=== PATIENT | male | born 1960 | race Caucasian/White ===

== ENCOUNTER 2023-09-06 07:30 | Observation (INO) ==
[2023-09-06] MEDS: NOZIN NASAL SANITIZER TP ONE (10:43)
[2023-09-06] MEDS: NS 100 ML IV 100 ML ONE (10:44)
[2023-09-06] MEDS: NS 1,000 ML IV 1,000 ML ONE (10:45)
[2023-09-06 11:55] VITALS: BMI 29.2
[2023-09-06] MEDS: DUONEB 0.5 MG/3 MG (3 mL) NEB ONE (12:01)
[2023-09-06] MEDS: VERSED ONE (13:00)
[2023-09-06] MEDS: ZOFRAN INJ 4 MG VIAL ONE (13:00)
[2023-09-06] MEDS: PEPCID 20 MG VIAL ONE (13:00)
[2023-09-06] MEDS: DIPRIVAN VIAL 20 ML ONE (13:00)
[2023-09-06] MEDS: ROBINUL ONE (13:00)
[2023-09-06] MEDS: BETADINE SOLN ONE (13:00)
[2023-09-06] MEDS: ANCEF VIAL 1 GRAM ONE (13:05)
[2023-09-06] MEDS ORDERED: NS IRRIGATION* 500 ML IR ONE (14:50)
[2023-09-06] MEDS: MARCAINE 0.25% INJ ONE (15:38)
[2023-09-06] MEDS ORDERED: ZOFRAN INJ 4 MG VIAL IVP PRN (16:11)
[2023-09-06] MEDS ORDERED: TYLENOL 325 MG TAB PO PRN (16:11)
[2023-09-06] MEDS: DILAUDID INJ IVP PRN (16:48)
[2023-09-06] MEDS: NORCO 5/325 MG TAB PO PRN (19:17)
[2023-09-06] MEDS: SNACK - Diabetic Appropriate PO SCH (21:13)
[2023-09-06] MEDS: COLACE CAP 100 MG PO SCH (21:13)
[2023-09-06] MEDS: NOZIN NASAL SANITIZER TP SCH (21:14)
[2023-09-06] MEDS: ANCEF VIAL 1 GRAM 2 G in NS 100 ML IV 100 ML IV SCH (21:15)
[2023-09-06] MEDS: NovoLIN R (or HumuLIN R) SUBCUT PRN (21:20)
[2023-09-06] MEDS: NS 500 ML IV 500 ML IV ONE (21:20)
[2023-09-06] MEDS ORDERED: ANCEF VIAL 1 GRAM IVP SCH (22:00)
[2023-09-07 05:59] LABS: BLOOD UREA NITROGEN 28 mg/dL (7-18); CALCIUM 8.6 mg/dL (8.5-10.1); CARBON DIOXIDE 30.2 mmol/L (21-32); CHLORIDE 98 mmol/L (98-107); COR NA(FOR HYPERGLY) 134 mmol/L (136-145); CREATININE 1.22 mg/dL (0.70-1.30); GLUCOSE 118 mg/dL (65-99); POTASSIUM 5.1 mmol/L (3.5-5.1); SODIUM 134 mmol/L (136-145); eGFR NON BLACK RACES > 60 (>60)
[2023-09-07 08:12] LABS: BASOPHILS # (AUTO) 0.1 X10^3/uL (0.0-0.1); BASOPHILS % (AUTO) 0.6 % (0.2-1.0); EOSINOPHILS # (AUTO) 0.1 x10^3/uL (0.0-0.2); EOSINOPHILS % (AUTO) 0.5 % (0.9-2.9); HEMATOCRIT 33.9 % (42.0-54.0); HEMOGLOBIN 11.2 g/dL (13.5-18.0); LYMPHOCYTES # (AUTO) 1.8 X10^3/uL (1.3-2.9); LYMPHOCYTES % (AUTO) 15.7 % (21.0-51.0); MEAN CORPUSCULAR HEMOGLOBIN 31.2 pg (27.0-34.0); MEAN CORPUSCULAR HGB CONC 33.1 g/dL (33.0-35.0); MEAN CORPUSCULAR VOLUME 94.4 fL (80.0-100.0); MEAN PLATELET VOLUME 7.5 fL (7.4-11.0); MONOCYTES # (AUTO) 1.2 x10^3/uL (0.3-0.8); MONOCYTES % (AUTO) 10.5 % (0.0-13.0); NEUTROPHILS # (AUTO) 8.3 x10^3/uL (2.2-4.8); NEUTROPHILS % (AUTO) 72.7 % (42.0-75.0); PLATELET COUNT 265 X10^3/uL (150.0-450.0); RED BLOOD COUNT 3.59 X10^6/uL (4.7-6.0); RED CELL DISTRIBUTION WIDTH 13.5 % (11.6-16.5); WHITE BLOOD COUNT 11.5 X10^3/uL (3.6-10.0)
--- NOTE | 2023-09-07 08:15 | NOTE.SOAP ---
Soap Note Note for Day of Date of Exam: 09/07/23 Subjective Data Subjective Data: POD1 Hindfoot fusion with removal of external fixator. Patient was in pain throughout the night in his foot and only slept a couple of hours. said patient left foot hanging off the bed in the midding of the night and dressings were draining quite a bit. He denies any consitutional symptoms at this time although he has not gone to the bathroom yet today Objective Data Objective Data: Significant sanguinous strikethrough the dressings. Incisions appear intake with no sign of hematoma, active bleeding or dehiscence. Pin sites are clean. Neurovascular status intact. Foot is in a plantigrade position. 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 Discussed the surgery and post op plan in great detail. Dressings were changed completely today. He is to be NWB to the RLE in a splint with a knee scooter or crutches. PT gait train and eval ap preciated. DC IV pain meds and transition to only oral. Patient ok for discharge but recommend working with physical therapy prior to discharge
[2023-09-07 08:36] LABS: BILIRUBIN,DIRECT 0.1 mg/dL (0-0.2); TOTAL PROTEIN 7.1 g/dL (6.4-8.2)
[2023-09-07] MEDS: LOVENOX INJ 40 MG SYR SC SCH (08:38)
[2023-09-07] MEDS: NS 1,000 ML IV 1,000 ML IV ONE ×2 (11:13→14:54)
[2023-09-07 12:24] VITALS: RESP 18
[2023-09-07 13:17] VITALS: PULSE 70; TEMP 98.4; O2SAT 94
[2023-09-07 17:32] VITALS: BP 101/54
== END 2023-09-07 16:45 | disposition home or self-care (01) ==
LOC: MED/SURG
PROVIDERS: ADMIT Obstetrics & Gynecology Obstetrics; ATTEND Obstetrics & Gynecology Obstetrics
DX: S93.314A Dislocation of tarsal joint of right foot, initial encounter; M14.671 Charcot's joint, right ankle and foot; T84.84XA Pain due to internal orthopedic prosthetic devices, implants and grafts, initial encounter; M21.6X1 Other acquired deformities of right foot; R26.89 Other abnormalities of gait and mobility

== ENCOUNTER 2023-10-29 13:10 | Inpatient (IN) ==
[2023-10-29 17:07] LABS: BASOPHILS # (AUTO) 0.2 X10^3/uL (0.0-0.1); EOSINOPHILS # (AUTO) 0.1 x10^3/uL (0.0-0.2); EOSINOPHILS % (AUTO) 1.3 % (0.9-2.9); HEMATOCRIT 33.5 % (42.0-54.0); HEMOGLOBIN 11.6 g/dL (13.5-18.0); LYMPHOCYTES # (AUTO) 2.2 X10^3/uL (1.3-2.9); LYMPHOCYTES % (AUTO) 24.8 % (21.0-51.0); MEAN CORPUSCULAR HEMOGLOBIN 32.1 pg (27.0-34.0); MEAN CORPUSCULAR HGB CONC 34.7 g/dL (33.0-35.0); MEAN CORPUSCULAR VOLUME 92.6 fL (80.0-100.0); MEAN PLATELET VOLUME 8.5 fL (7.4-11.0); MONOCYTES # (AUTO) 0.7 x10^3/uL (0.3-0.8); MONOCYTES % (AUTO) 7.4 % (0.0-13.0); NEUTROPHILS # (AUTO) 5.7 x10^3/uL (2.2-4.8); NEUTROPHILS % (AUTO) 64.5 % (42.0-75.0); PLATELET COUNT 246 X10^3/uL (150.0-450.0); RED BLOOD COUNT 3.62 X10^6/uL (4.7-6.0); WHITE BLOOD COUNT 8.9 X10^3/uL (3.6-10.0)
[2023-10-29 17:11] VITALS: BMI 31.5
--- NOTE | 2023-10-29 17:26 | EKG ---
Test Reason : RIGHT TIBIA FRACTURE Blood Pressure : */* mmHG Vent. Rate : 67 BPM Atrial Rate : 67 BPM P-R Int : 234 ms QRS Dur : 140 ms QT Int : 426 ms P-R-T Axes : 11 -57 125 degrees QTc Int : 450 ms Sinus rhythm with 1st degree AV block Left axis deviation Left bundle branch block Abnormal ECG When compared with ECG of 02-AUG-2023 13:04, IN interval has increased Left bundle branch block has replaced Nonspecific intraventricular conduction delay Confirmed by Ranjit Bernabe MD ([id number]) on 10/30/2023 7:49:32 AM Referred By: Confirmed By: Ranjit Bernabe MD
[2023-10-29] MEDS: D5 1/2 NS 1,000 ML 1,000 ML IV SCH (17:28)
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
[2023-10-29 17:42] LABS: ALANINE AMINOTRANSFERASE 24 Units/L (12-78); ALBUMIN 3.3 g/dL (3.4-5.0); ALKALINE PHOSPHATASE 115 Units/L (46-116); ASPARTATE AMINO TRANSFERASE 21 Units/L (15-37); BLOOD UREA NITROGEN 25 mg/dL (7-18); CALCIUM 8.7 mg/dL (8.5-10.1); CARBON DIOXIDE 31.1 mmol/L (21-32); CHLORIDE 106 mmol/L (98-107); COR CA(FOR HYPOALB) 9.3 mg/dL (8.5-10.1); CREATININE 1.01 mg/dL (0.70-1.30); GLUCOSE 88 mg/dL (65-99); POTASSIUM 4.3 mmol/L (3.5-5.1); SODIUM 142 mmol/L (136-145); eGFR NON BLACK RACES > 60 (>60)
[2023-10-29] MEDS: PERCOCET TAB 5/325 MG PO PRN (18:05)
[2023-10-30 04:51] LABS: BASOPHILS % (AUTO) 0.4 % (0.2-1.0); HEMOGLOBIN 10.9 g/dL (13.5-18.0); NEUTROPHILS # (AUTO) 5.1 x10^3/uL (2.2-4.8); WHITE BLOOD COUNT 7.3 X10^3/uL (3.6-10.0)
[2023-10-30 04:57] LABS: EOSINOPHILS # (AUTO) 0.2 x10^3/uL (0.0-0.2); EOSINOPHILS % (AUTO) 2.4 % (0.9-2.9); HEMATOCRIT 31.7 % (42.0-54.0); LYMPHOCYTES # (AUTO) 1.2 X10^3/uL (1.3-2.9); LYMPHOCYTES % (AUTO) 16.3 % (21.0-51.0); MEAN CORPUSCULAR HGB CONC 34.4 g/dL (33.0-35.0); MEAN CORPUSCULAR VOLUME 93.1 fL (80.0-100.0); MEAN PLATELET VOLUME 7.9 fL (7.4-11.0); MONOCYTES # (AUTO) 0.8 x10^3/uL (0.3-0.8); MONOCYTES % (AUTO) 11.4 % (0.0-13.0); NEUTROPHILS % (AUTO) 69.5 % (42.0-75.0); PLATELET COUNT 174 X10^3/uL (150.0-450.0); RED CELL DISTRIBUTION WIDTH 15.1 % (11.6-16.5)
[2023-10-30 04:59] LABS: ALANINE AMINOTRANSFERASE 19 Units/L (12-78); ALKALINE PHOSPHATASE 112 Units/L (46-116); ASPARTATE AMINO TRANSFERASE 18 Units/L (15-37); BLOOD UREA NITROGEN 20 mg/dL (7-18); CALCIUM 8.4 mg/dL (8.5-10.1); CHLORIDE 104 mmol/L (98-107); COR CA(FOR HYPOALB) 9.2 mg/dL (8.5-10.1); COR NA(FOR HYPERGLY) 142 mmol/L (136-145); CREATININE 0.89 mg/dL (0.70-1.30); GLUCOSE 184 mg/dL (65-99); POTASSIUM 4.4 mmol/L (3.5-5.1); SODIUM 140 mmol/L (136-145); TOTAL PROTEIN 6.6 g/dL (6.4-8.2); eGFR NON BLACK RACES > 60 (>60)
[2023-10-30] MEDS: NOZIN NASAL SANITIZER TP SCH (08:58)
[2023-10-30] MEDS: CLEOCIN 300 MG IV PREMIX 300 MG/50 ML BAG IV SCH (09:27)
[2023-10-30] MEDS: NEURONTIN CAP 300 MG PO SCH (09:28)
[2023-10-30] MEDS: LR 1,000 ML IV 1,000 ML IV SCH (09:28)
[2023-10-30] MEDS: TOPROL XL PO SCH (09:30)
[2023-10-30] MEDS: COZAAR PO SCH ×2 (09:30→20:27)
[2023-10-30] MEDS: WELLBUTRIN XL 300 MG (DAILY) PO SCH (09:30)
[2023-10-30] MEDS: HIBICLENS WASH ONE (09:35)
[2023-10-30] MEDS ORDERED: NORCO 7.5/325 MG TAB PO PRN (10:08)
[2023-10-30] MEDS ORDERED: D5W 1,000 ML IV 1,000 ML IV ONE (12:02)
[2023-10-30] MEDS: D5W 1,000 ML IV 1,000 ML IV SCH (12:05)
[2023-10-30] MEDS: D5 1/2 NS 1,000 ML 1,000 ML IV ONE ×2 (12:48→15:10)
[2023-10-30] MEDS: D50W ABBOJECT SYR ONE (12:53)
[2023-10-30] MEDS: ANCEF VIAL 1 GRAM ONE (13:21)
[2023-10-30] MEDS: NS 100 ML IV 100 ML ONE (13:21)
[2023-10-30] MEDS: ROBINUL ONE (13:25)
[2023-10-30] MEDS: DIPRIVAN VIAL 20 ML ONE (13:25)
[2023-10-30] MEDS: DILAUDID INJ ONE (13:25)
[2023-10-30] MEDS: VERSED ONE (13:25)
[2023-10-30] MEDS: ZOFRAN INJ 4 MG VIAL ONE (13:25)
[2023-10-30] MEDS: MAGNESIUM SULFATE 50% INJ VIAL ONE (13:25)
[2023-10-30] MEDS: PEPCID 20 MG VIAL ONE (13:25)
[2023-10-30] MEDS: MARCAINE 0.25% INJ ONE (13:51)
[2023-10-30] MEDS: EPHEDRINE SULFATE INJ ONE (14:01)
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
[2023-10-30] MEDS: NEO-SYNEPHRINE INJ ONE (14:22)
[2023-10-30] MEDS: HYDROGEN PEROXIDE 3% ONE (15:12)
[2023-10-30] MEDS ORDERED: BARHEMSYS INJ IVP PRN (15:47)
[2023-10-30] MEDS: BENADRYL INJ 50 MG VIAL IVP PRN (15:47)
[2023-10-30] MEDS ORDERED: PERCOCET TAB 5/325 MG PO PRN (15:47)
[2023-10-30] MEDS ORDERED: DILAUDID INJ IVP PRN ×2 (15:47)
[2023-10-30] MEDS ORDERED: ZOFRAN INJ 4 MG VIAL IVP PRN (15:47)
--- NOTE | 2023-10-30 17:48 | RAD ---
EXAM:LOWER LEG, TIB/FIB RIGHTHISTORY:post op;COMPARISON:CT exam from October 29, 2023TECHNIQUE:Right tibia/fibula radiographs, 4 views, AP and lateral projections, 2 imagesFINDINGS:Status post amputation of the distal aspect of the fibula.Oblique fracture in the mid tibia with an intramedullary dayna in place in the tibia. Stabilization and arthrodesis hardware involving the tibiotalar joint.Diffuse soft tissue edema.IMPRESSION:Postoperative changes as described above. No significant changes.THIS IS AN ELECTRONICALLY VERIFIED FINAL REPORT10/30/2023 5:45 PM - Electronically signed by Mark Be MD
--- NOTE | 2023-10-30 17:49 | RAD ---
EXAM: ANKLE, RIGHT three views HISTORY: post op; COMPARISON: None FINDINGS: Extensive fixation hardware is present fixating the joints of the hindfoot and ankle. There are dege nerative changes in the hindfoot. Spiral fracture noted through the mid to distal tibia. Soft tissu e swelling is present. There has been resection of the distal fibula. IMPRESSION: 1. Tibia fracture THIS IS AN ELECTRONICALLY VERIFIED FINAL REPORT 10/30/2023 5:46 PM - Electronically signed by Judson Jacinto MD
[2023-10-30] MEDS: ULTRAM PO PRN (19:58)
[2023-10-30] MEDS ORDERED: SNACK - Diabetic Appropriate PO SCH (20:00)
[2023-10-30] MEDS: GLUCOPHAGE XR 24-HR PO SCH (20:39)
[2023-10-31 04:49] LABS: BASOPHILS % (AUTO) 0.3 % (0.2-1.0); EOSINOPHILS # (AUTO) 0.1 x10^3/uL (0.0-0.2); EOSINOPHILS % (AUTO) 1.2 % (0.9-2.9); HEMATOCRIT 24.4 % (42.0-54.0); LYMPHOCYTES # (AUTO) 1.1 X10^3/uL (1.3-2.9); LYMPHOCYTES % (AUTO) 13.9 % (21.0-51.0); MEAN CORPUSCULAR HEMOGLOBIN 31.9 pg (27.0-34.0); MEAN CORPUSCULAR HGB CONC 34.3 g/dL (33.0-35.0); MEAN CORPUSCULAR VOLUME 93.1 fL (80.0-100.0); MEAN PLATELET VOLUME 8.1 fL (7.4-11.0); MONOCYTES # (AUTO) 0.9 x10^3/uL (0.3-0.8); MONOCYTES % (AUTO) 11.7 % (0.0-13.0); NEUTROPHILS # (AUTO) 5.7 x10^3/uL (2.2-4.8); NEUTROPHILS % (AUTO) 72.9 % (42.0-75.0); PLATELET COUNT 154 X10^3/uL (150.0-450.0); RED BLOOD COUNT 2.62 X10^6/uL (4.7-6.0); RED CELL DISTRIBUTION WIDTH 14.8 % (11.6-16.5); WHITE BLOOD COUNT 7.8 X10^3/uL (3.6-10.0)
[2023-10-31 04:57] LABS: BLOOD UREA NITROGEN 16 mg/dL (7-18); CALCIUM 7.9 mg/dL (8.5-10.1); CARBON DIOXIDE 29.4 mmol/L (21-32); CHLORIDE 101 mmol/L (98-107); COR NA(FOR HYPERGLY) 140 mmol/L (136-145); CREATININE 1.09 mg/dL (0.70-1.30); GLUCOSE 219 mg/dL (65-99); POTASSIUM 4.2 mmol/L (3.5-5.1); SODIUM 137 mmol/L (136-145); eGFR NON BLACK RACES > 60 (>60)
[2023-10-31 05:01] LABS: HEMOGLOBIN 8.4 g/dL (13.5-18.0)
[2023-10-31 05:19] LABS: ALANINE AMINOTRANSFERASE 15 Units/L (12-78); ALBUMIN 2.3 g/dL (3.4-5.0); ALKALINE PHOSPHATASE 84 Units/L (46-116); ASPARTATE AMINO TRANSFERASE 14 Units/L (15-37); COR CA(FOR HYPOALB) 9.3 mg/dL (8.5-10.1); MAGNESIUM 1.6 mg/dL (2.0-2.9); TOTAL PROTEIN 5.7 g/dL (6.4-8.2)
[2023-10-31] MEDS: NovoLIN R (or HumuLIN R) SUBCUT PRN (05:57)
[2023-10-31] MEDS ORDERED: CONSULT PHARMACY - POTASSIUM & MAGNESIUM XX SCH (07:00)
--- NOTE | 2023-10-31 07:50 | NOTE.SOAP ---
Soap Note Note for Day of Date of Exam: 10/31/23 Subjective Data Subjective Data: 63M s/p right tibia ORIF (DOS: 10/30/23), he is doing well this am. We have him on tramadol for pain as he gets an allergic reaction to other narcotics. He was doign well when i saw him this am. No constitutional symptoms such as nausea, vomiting, fever, chills, sob or calf pain. Objective Data Objective Data: Incisions well coapted. No signs of dehiscence. Foot is in a rectus position. Neurovascular status unchanged. No tenderness of the lower extremity. Skin is normal color and temperature. Assessment Assessment: 63M with charcot arthropathy who has a midshaft tibial fracture (42B) who underwent a tibia orif with exchange of ttc nail (DOS: 10/30/23) Plan Plan: Patient was seen bedside this am, he is doign well. Explained again that patient cannot be weight bearing for at least 3-4 weeks. He will need to be in a wheelchair as a knee scooter is too dangerous. He is on clindamycin IV and will send him home on PO antibiotic. Tramadol for pain. He is on aspirin. Continue elevation. Will coordinate with case management for home health to change dressing of lateral foot wound. OK for discharge from a podiatry standpoint
[2023-10-31] MEDS: ACTOS PO SCH (08:52)
[2023-10-31] MEDS: MAG-OX TAB PO SCH (08:53)
[2023-10-31] MEDS: LOVENOX INJ 40 MG SYR SC SCH (08:53)
[2023-10-31 09:04] VITALS: RESP 18
[2023-10-31 11:43] VITALS: BP 109/55; PULSE 78; TEMP 97.9; O2SAT 92
== END 2023-10-31 11:25 | disposition home health service (06) | DRG 494 ==
LOC: MED/SURG 16:01
PROVIDERS: ADMIT Internal Medicine; ATTEND Obstetrics & Gynecology Obstetrics
DX: E11.69 Type 2 diabetes mellitus with other specified complication; I25.10 Atherosclerotic heart disease of native coronary artery without angina pectoris; Y92.89 Other specified places as the place of occurrence of the external cause; W01.0XXA Fall on same level from slipping, tripping and stumbling without subsequent striking against object, initial encounter; S82.291A Other fracture of shaft of right tibia, initial encounter for closed fracture; Z98.890 Other specified postprocedural states; I10 Essential (primary) hypertension